=== PATIENT | female | born 1960 | race Caucasian/White ===

== ENCOUNTER 2018-09-09 23:50 | Emergency (ER) | payer BC, MEDICARE ==
[~2018-09-09] VITALS: Ht 160 cm; Wt 81.6 kg
--- OUTSIDE RECORDS SUMMARY | 2018-09-09 23:53 | XMS REPORT | Summary of Care ---
Author Organization Unknown Address Unknown Phone Unavailable Encounter HQ Leilar_aung(DEEJAY) [id number] Date(s): 10/17/13 - 10/17/13 [facility] Outpatient Imaging [place] [address] [place], [place] [id number] [place] [address] Discharge Disposition: Home Physician Attending: Talia Casper DC Reason for Visit 723.2 - CERVICOCRANIAL Problem List No data available for this section Allergies, Adverse Reactions, Alerts Substance Reaction Severity Status codeine Active Vicodin Active Medications No data available for this section Medications Administered During Your Visit No data available for this section Immunizations No data available for this section
--- OUTSIDE RECORDS SUMMARY | 2018-09-09 23:53 | XMS REPORT | Summary of Care ---
Author Author [facility] Organization [facility] Address Unknown Phone Unavailable Encounter ADELAIDE Dailey(DEEJAY) [id number] Date(s): 12/26/16 - 12/26/16 [facility] [address] [place] [address]- Discharge Disposition: Home or Self Care Attending Physician: Jolie Lewis MD Referring Physician: Jolie Lewis MD Vital Signs No data available for this section Problem List Condition Effective Dates Status Health Status Informant Current every day Active smoker(Confirmed) Depression(Confirmed Resolved ) Fracture(Confirmed)1 Resolved Heartburn(Confirmed) Resolved Hypertension(Confirm Active ed) Knee Active pain(Confirmed)2 Polyp of colon3 09/07/10 Active Shoulder Active pain(Confirmed)4 UI - Urinary Active incontinence(Confirm ed) 1left humerus 2left knee 3Data migrated from [employer] on 08/23/14. 4Right shoulder Allergies, Adverse Reactions, Alerts Substance Reaction Severity Status acetaminophen-HYDROcodone Active 1 codeine2 Active Vicodin throat swelling Severe Active 1Data migrated from [employer] on 07/22/14. Originally documented as VICODIN. Respiratory problems, e.g., wheezing 2Data migrated from [employer] on 05/27/15. Originally documented as CODEINE. Respiratory problems, e.g., wheezing Medications No data available for this section Results No data available for this section Immunizations No data available for this section Procedures Procedure Date Related Diagnosis Body Site Repair of meniscus2012 Operation on colon2 2009 Hysterectomy 2002 section 1992 Tonsillectomy 1976 Fallopian tube operation 1Right knee 2Colon tumor removed Social History Social History Type Response Alcohol Never Smoking Status Current every day smoker; Type: Cigarettes; Ready to change: No; Lives with someone who smokes; Cigarette Smoking Last 365 Days Yes; Reg Smoking Cessation Counseling Yes Assessment and Plan No data available for this section
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
--- OUTSIDE RECORDS SUMMARY | 2018-09-09 23:53 | XMS REPORT ---
Author Author Jey Weaver Organization [employer] Address Unknown Phone Unavailable Care Team Providers Care Stacking Machine Operator Name Role Phone Jey Weaver Unavailable Encounters Encounter Location Date MRI [facility] May 21, 2014 Problems Problem Type Condition ICD-9 Code Onset Dates Condition Status Problem Pain in soft tissues of limb 729.5 Active Problem Dislocation of midtarsal(joint)/Closed 838.02 Active Problem Capsulitis 726.90 Active Social History Social History Element Qualifiers Date Reported Do you smoke? . Answer: Yes, Are you a current smoker, How much do you smoke? 1 pk a day May 16, 2014 Marital Status: . May 16, 2014 Do you exercise? . Answer: No May 16, 2014 Do you drink alcohol? . Status: Yes May 16, 2014 Occupation: . Retired May 16, 2014 Summary Purpose [employer] Submission
--- OUTSIDE RECORDS SUMMARY | 2018-09-09 23:53 | XMS REPORT | Summary of Care ---
Author Author [facility] Address Unknown Phone Unavailable Encounter HQ Encntr_aung(FIN) [id number] Date(s): 04/28/15 - 05/27/15 [facility] Discharge Disposition: Home Attending Physician: Raul Goodman MD Vital Signs No data available for this section Problem List Condition Effective Dates Status Health Status Informant Polyp of colon1 09/07/10 Active 1Data migrated from [employer] on 08/23/14. Allergies, Adverse Reactions, Alerts Substance Reaction Severity Status acetaminophen-HYDROcodone Active 1 codeine2 Active Vicodin Active 1Data migrated from [employer] on 07/22/14. Originally documented as VICODIN. Respiratory problems, e.g., wheezing 2Data migrated from [employer] on 05/27/15. Originally documented as CODEINE. Respiratory problems, e.g., wheezing Medications No data available for this section Results No data available for this section Immunizations No data available for this section Procedures No data available for this section Social History No data available for this section Assessment and Plan No data available for this section
--- OUTSIDE RECORDS SUMMARY | 2018-09-09 23:53 | XMS REPORT | Summary of Care ---
Author Author [facility] Organization [facility] Address Unknown Phone Unavailable Encounter ADELAIDE Dailey(DEEJAY) [id number] Date(s): 12/14/16 - 12/14/16 [facility] [address] [place] [address]- Discharge Disposition: Home or Self Care Attending [...]
--- OUTSIDE RECORDS SUMMARY | 2018-09-09 23:53 | XMS REPORT | Summary of Care ---
Author Author [facility] Organization [facility] Address Unknown Phone Unavailable Encounter HQ Ashlie(DEEJAY) [id number] Date(s): 02/27/15 - 02/27/15 [facility] [address] [place] [address]- Discharge Disposition: Home Attending Physician: Jolie Lewis MD Referring Physician: Tracey Ramirez DO Vital Signs No data available for this section Problem List Condition Effective Dates Status Health Status Informant Polyp of colon1 09/07/10 Active 1Data migrated from [employer] on 08/23/14. Allergies, Adverse Reactions, Alerts Substance Reaction Severity Status acetaminophen-HYDROcodone Active 1 codeine Active Vicodin Active 1Data migrated from [employer] on 07/22/14. Originally documented as VICODIN. Respiratory problems, e.g., wheezing Medications No data available for this section Results No data available for this section Immunizations No data available for this section Procedures No data available for this section Social History No data available for this section Assessment and Plan No data available for this section
--- OUTSIDE RECORDS SUMMARY | 2018-09-09 23:53 | XMS REPORT | Summary of Care ---
Author Author [facility] Organization [facility] Address Unknown Phone Unavailable Encounter ADELAIDE Dailey(DEEJAY) [id number] Date(s): 01/03/17 - 01/03/17 [facility] [address] [place] [address]- [phone] Discharge Disposition: Home or Self Care Attending [...]
--- OUTSIDE RECORDS SUMMARY | 2018-09-09 23:53 | XMS REPORT | Continuity of Care Document ---
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 Active 03/16/2017 [facility] CYST RIGHT BREAST ONLY 1 AREA Active 12/26/2016 [facility] MASS Active 12/21/2016 [facility] DX: ROUTINE SCREENING/Z13.820=ENCOUNTER Active 10/06/2016 [facility] Discharge Diagnosis: Cervicalgia 03/04/2016 03/07/2016 [facility] Discharge Diagnosis: Pain in lower back 03/04/2016 03/07/2016 [facility] FALL Active 03/04/2016 [facility] UNK Active 10/08/2015 [facility] S09.90XA Active 02/24/2015 [facility] 354.1 - MEDIAN NERVE LE Active 09/30/2014 [facility] [place] RT HAND DX:GANGLION CYST RT HAND/ULNER N Active 09/23/2014 [facility] 726.90 ADHESION OF TENDON Active 06/03/2014 [facility] Polyp of colon<sup>1</sup> Active 09/07/2010 Problem 05/30/2015 Data migrated from [employer] on 08/23/14. [facility] Polyp of colon<sup>3</sup> Active 09/07/2010 Problem 01/06/2017 Data migrated from [employer] on 08/23/14. [facility] Polyp of colon<sup>3</sup> Active 09/07/2010 Problem 06/28/2016 Data migrated from [employer] on 08/23/14. [facility] [address] [place], [place] [facility] Pain in soft tissues of limb Active Problem 05/22/2014 [facility] Dislocation of midtarsal/Closed Active Problem 05/22/2014 [facility] Capsulitis Active Problem 05/22/2014 [facility] Current every day smoker Active Problem 01/06/2017 [facility] Depression Resolved Problem 01/06/2017 [facility] [place] Fracture<sup>1</sup> Resolved Problem 01/06/2017 left humerus [facility] [place] Heartburn Resolved Problem 01/06/2017 [facility] [place] Hypertension Active Problem 01/06/2017 [facility] [place] [place] Knee pain<sup>2</sup> Active Problem 01/06/2017 left knee [facility] [place] Shoulder pain<sup>4</sup> Active Problem 01/06/2017 Right shoulder [facility] [place] UI - Urinary incontinence Active Problem 01/06/2017 [facility] [place] Current every day smoker Active Problem 06/28/2016 [facility] [place] [place] Depression Resolved Problem 06/28/2016 [facility] [place] [place] Fracture<sup>1</sup> Resolved Problem 06/28/2016 left humerus [facility] [place] [place] Heartburn Resolved Problem 06/28/2016 [facility] [place] [place] Hypertension Active Problem 06/28/2016 [facility] [place] [place] Knee pain<sup>2</sup> Active Problem 06/28/2016 left knee [facility] [place] [place] Shoulder pain<sup>4</sup> Active Problem 06/28/2016 Right shoulder [facility] [place] [place] UI - Urinary incontinence Active Problem 06/28/2016 [facility] [place] [place] HAND Active [facility] RT HAND PAIN Active [facility] RIGHT RTC Active [facility] POST RTC SX:10/29/2015 Active [facility] [place] RT SHOULDER STIFFNESS Active [facility] STIFFNESS OF RT SHOULDER Active [facility] Medications Medication Details Route Status Patient Instructions Ordering Provider Order Date Source Cyclobenzaprine hydrochloride 10 MG Oral Tablet [Flexeril] 10 mg, PO, TID, PRN Muscle Spasm, X 5 day, # 20 tab, 0 Refill(s) Active 03/05/2016 [facility] tramadol hydrochloride 50 MG Oral Tablet [Ultram] 100 mg=2 tab, PO, Q6H, PRN pain, X 3 day, # 24 tab, 0 Refill(s) Active 03/05/2016 [facility] Oxycodone Hydrochloride 1 MG/ML Oral Solution 5 mg, 5 mL, Route: PO, Drug form: SOLN, ONCE, Dosing Weight 86.364, kg, Start date: 03/04/16 17:39:00 [employer], Stop date: 03/04/16 17:39:00 CSTNotes: (Same as:'Roxicodone) To be drawn up in 3 mL syr Inactive 03/04/2016 [facility] Dexamethasone 10 mg, Route: IM, ONCE, Dosing Weight 86.364, kg, Priority: STAT, Start date: 03/04/16 17:39:00 [employer], Stop date: 03/04/16 17:39:00 [employer] Inactive 03/04/2016 [facility] Flexeril 10 mg, Route: PO, ONCE, Dosing Weight 86.364, kg, Priority: STAT, Start date: 03/04/16 17:38:00 STR[employer]CH[employer], Stop date: 03/04/16 17:38:00 [employer] Inactive 03/04/2016 [facility] Ketorolac 60 mg, Route: IM, Drug form: INJ, ONCE, Dosing Weight 86.364, kg, Priority: STAT, Start date: 03/04/16 17:38:00 [employer], Stop date: 03/04/16 17:38:00 [employer] Inactive 03/04/2016 [facility] ropivacaine (ANES) Route: NERVE BLOCK, Drug Form: INJ, ONCE, Stop date: 10/29/15 20:07:00 CDT Inactive 10/30/2015 [facility] neostigmine (ANES) Route: IV, Drug form: INJ, ONCE, Stop date: 10/29/15 14:27:00 CDT Inactive 10/29/2015 [facility] glycopyrrolate (ANES) Route: IV, Drug form: INJ, ONCE, Stop date: 10/29/15 14:27:00 CDT Inactive 10/29/2015 [facility] ePHEDrine (ANES) Route: IV, Drug form: INJ, ONCE, Stop date: 10/29/15 14:27:00 CDT Inactive 10/29/2015 [facility] ropivacaine Dosing: Per Nerve Block Dosing Order, Route: NERVE BLOCK, Start date: 10/29/15 14:21:00 CDT 400 mL, Dosing Weight 85.46, kg, Duration: 30 day, Stop date: 11/28/15 14:20:00 CDT Inactive 10/29/2015 [facility] Ondansetron 4 mg, Route: IVP, ONCE, Dosing Weight 85.46, kg, PRN Nausea & Vomiting, Start date: 10/29/15 14:15:00 CDT Inactive 10/29/2015 [facility] Fentanyl 50 microgram, Route: IVP, Q5Min, Dosing Weight 85.46, kg, PRN Pain Score 7-10, Start date: 10/29/15 14:15:00 CDT, Duration: 2 doses or times, Stop date: Limited # of times Inactive 10/29/2015 [facility] Flumazenil 0.2 mg, Route: IVP, PRN, Dosing Weight 85.46, kg, PRN Benzodiazepine Reversal, Initial dose, Start date: 10/29/15 14:15:00 CDT, Duration: 30 day, Stop date: 11/28/15 14:14:00 CDT Inactive 10/29/2015 [facility] Oxycodone 10 mg, Route: PO, Drug form: TAB, Q4H, Dosing Weight 85.46, kg, PRN Pain Score 7-10, Start date: 10/29/15 14:15:00 CDT, Duration: 30 day, Stop date: 11/28/15 14:14:00 CDT Inactive 10/29/2015 [facility] Meperidine 12.5 mg, Route: IVP, Q30Min, Dosing Weight 85.46, kg, PRN Other -See Comment, For shivering, Start date: 10/29/15 14:15:00 CDT, Duration: 2 doses or times, Stop date: Limited # of times Inactive 10/29/2015 [facility] Naloxone 0.4 mg, Route: IVP, Q2MIN, Dosing Weight 85.46, kg, PRN Narcotic Reversal, Start date: 10/29/15 14:15:00 CDT, Duration: 8 doses or times, Stop date: Limited # of times Inactive 10/29/2015 [facility] Acetaminophen 1,000 mg, Route: IVPB, Drug form: INJ, ONCE, Dosing Weight 85.46, kg, PRN Pain Score 1-3, Start date: 10/29/15 14:15:00 CDT, Duration: 1 doses or times, Stop date: Limited # of times Inactive 10/29/2015 [facility] Hydromorphone 0.5 mg, Route: IVP, Q5Min, Dosing Weight 85.46, kg, PRN Pain Score 7-10, Start date: 10/29/15 14:15:00 CDT, Duration: 4 doses or times, Stop date: Limited # of times Inactive 10/29/2015 [facility] ondansetron (ANES) Route: IV, Drug form: INJ, ONCE, Stop date: 10/29/15 13:55:00 CDT Inactive 10/29/2015 [facility] propofol (ANES) Route: IV, Drug form: INJ, ONCE, Stop date: 10/29/15 13:50:00 CDT Inactive 10/29/2015 [facility] rocuronium (ANES) Route: IV, Drug form: INJ, ONCE, Stop date: 10/29/15 13:50:00 CDT Inactive 10/29/2015 [facility] fentaNYL (ANES) Route: IV, Drug form: INJ, ONCE, Stop date: 10/29/15 13:50:00 CDT Inactive 10/29/2015 [facility] ceFAZolin (ANES) Route: IV, Drug form: INJ, ONCE, Stop date: 10/29/15 13:45:00 CDT Inactive 10/29/2015 [facility] midazolam (ANES) Route: IV, Drug form: SOLN, ONCE, Stop date: 10/29/15 13:45:00 CDT Inactive 10/29/2015 [facility] LR 1000 mL INJ (ANES) Route: IV, Total Volume: 1,000, Start date: 10/29/15 13:06:00 CDT, Stop date: 10/29/15 14:06:00 CDT Inactive 10/29/2015 [facility] Calcium Chloride 0.0014 MEQ/ML / Potassium Chloride 0.004 MEQ/ML / Sodium Chloride 0.103 MEQ/ML / Sodium Lactate 0.028 MEQ/ML Injectable Solution 1,000 mL, Rate: 25 ml/hr, Infuse over: 40 hr, Route: IV, Dosing Weight 85.46 kg, Total Volume: 1,000, Start date: 10/29/15 10:35:00 CDT, Duration: 30 day, Stop date: 11/28/15 10:34:00 CDT Inactive 10/29/2015 [facility] Propranolol 10 mg=1 tab, PO, Daily Active 10/29/2015 [facility] azilsartan medoxomil 40 MG / Chlorthalidone 25 MG Oral Tablet [Edarbyclor 40/25] 1 tab, PO, Daily Active 10/29/2015 [facility] Aspirin 81 mg, PO, Daily, 0 Refill(s) No Longer Active 10/27/2015 [facility] Allergies, Adverse Reactions, Alerts Substance Category Reaction Severity Reaction type Status Date Reported Comments Source acetaminophen-HYDROcodone<sup>1</sup> Assertion Drug allergy Active 09/07/2010 Data migrated from [employer] on 07/22/14. Originally documented as VICODIN. Respiratory problems, e.g., wheezing [facility] codeine<sup>2</sup> Assertion Drug allergy Active 09/07/2010 Data migrated from [employer] on 05/27/15. Originally documented as CODEINE. Respiratory problems, e.g., wheezing [facility] codeine Assertion Drug allergy Active [facility] Vicodin Assertion throat swelling Severe Propensity to adverse reactions to drug Active [facility] Immunizations Immunization Date Given Site Status Last Updated Comments Source Results Order Name Results Value Reference Range Date Interpretation Comments Source Breast Mammo Diag UNI incl CAD MA Breast Mammo Diag UNI incl CAD MA UNILATERAL RIGHT DIGITAL DIAGNOSTIC MAMMOGRAM WITH CAD POST-PROCEDURE IMAGING FOR MARKER PLACEMENT: 01/03/2017 CLINICAL: Post biopsy clip confirmation mammogram after ultrasound biopsy. Current study was evaluated with a Computer Aided Detection (CAD) system. COMPARISON:Comparison is made to exams dated: 12/26/2016 mammogram, 12/14/2016 mammogram, 01/03/2017 ultrasound biopsy - [facility], 08/30/2011 mammogram - [facility], and 08/25/2010 ultrasound - [facility]. TECHNIQUE: Mammographic views were obtained using digital acquisition. [employer] Version 1.3 was utilized for computer aided detection. The tissue of right breast is heterogeneously dense, which could obscure detection of small masses. FINDINGS: Post procedure digital mammogram demonstrates the biopsy clip in appropriate position. No other significant interval change. There are benign densities in the right breast. IMPRESSION: POST PROCEDURE MAMMOGRAM FOR MARKER PLACEMENT RECOMMENDATION:Biopsy clip is in appropriate position. Please see biopsy report for further details. Follow up with ACR/SBI guidelines. This exam was interpreted at [id number] for [facility]. José Miguel kwokt/penrad:01/03/2017 10:59:29 Telephone Order Dispatcher(s): Maddie Varner, RT(R)(M), [facility] Mammogram BI-RADS: Post-procedure mammogram for marker placement 01/03/2017 - - Read by: José Miguel Stevenson MD Dictated Date/time: 01/03/17 10:59 Electronically Signed by: José Miguel Stevenson MD 01/03/17 10:59 FINAL REPORT [facility] Breast BX Uni w Clip Primary Side US Breast BX Uni w Clip Primary Side US ULTRASOUND GUIDED BIOPSY RIGHT BREAST WITH MARKING DEVICE INSERTED AND POST DIGITAL MAMMOGRAPHIC AND ULTRASOUND IMAGIN01/03/2017 CLINICAL: Right breast 2 o'clock Cystic Mass. PATIENT CONSENT: Oral and written informed consent was obtained. Risks, benefits, and alternatives were discussed with the patient. Risks include but are not limited to pain, infection, bleeding, incomplete procedure, repeat procedure, pneumothorax, damage to surrounding tissues, and allergic reaction. The patient understands the plan and wishes to proceed. A time out was performed immediately prior to the procedure to confirm the patient's identity (name/date of ) and correct procedure site. Correlation is made to exams dated: 12/26/2016 ultrasound, 12/26/2016 mammogram, 12/14/2016 mammogram - [facility], 08/30/2011 mammogram - [facility], 08/25/2010 ultrasound, and 08/25/2010 mammogram - [facility]. An ultrasound guided biopsy using real-time ultrasound was performed for the concerning 1.7 cm circumscribed oval cystic mass located in the right breast at 2 o'clock middle depth 2 cm from the nipple. This was described on the previous mammography and ultrasound reports. The skin was prepped in the usual manner. 5 ccs of 1% lidocaine was administered during the procedure. After the local a nesthetic was administered, about 2 ccs of cloudy fluid was aspirated and sent for cytological analysis. Then, biopsy of the persistent cystic mass was performed. A skin amanda was made in the breast. The abnormality was approached from the medial aspect. A 14 gauge biopsy needle was placed adjacent to the abnormality through an introducer device under ultrasound guidance. Once the needle was documented to be in the correct location, multiple cores were obtained using an Achieve automated firing device. A Gel Alejandro UltraCor braided R/omega shaped clip was inserted into the biopsy cavity. A skin adhesive and a skin closure strip were applied to the access site. Post procedure digital mammographic and ultrasound imaging interpreted on a dedicated mammography workstation demonstrates the clip at the targeted area and partial removal of the abnormality. The specimens were sent to the laboratory for pathological analysis. IMPRESSION: ULTRASOUND GUIDED BIOPSY BENIGN Ultrasound guided biopsy of the 1.7 cm cystic mass in the right breast at 2 o'clock middle depth 2 cm from the nipple was successful with no apparent post procedure complications. Pathology indicates benign results - "Fibrocystic changes consistent with cyst formation, nodular fibrosis, florid duct epithelial hyperplasia, apocrine metaplasia, adenosis". Negative cytology - "Negative, no malignant cells identified. Mostly proteinaceous debris consistent with cyst contents." Pathology results are concordant with imaging findings. Return to annual mammogram screening schedule is recommended.(12/14/2017) This exam was interpreted at [id number] for [facility]. José Miguel Stevenson M.D. jt/:01/05/2017 10:04:57 Telephone Order Dispatcher(s): Alek Horan [facility] letter sent: Post Bx Results 01/03/2017 - - Read by: José Miguel Stevenson MD Dictated Date/time: 01/05/17 10:04 Electronically Signed by: José Miguel Stevenson MD 01/05/17 10:04 FINAL REPORT [facility] Breast Limited Uni US Breast Limited Uni US - BREAST LIMITED UNI US/R ULTRASOUND OF RIGHT BREAST: 12/26/2016 CLINICAL: Abnormal mammogram, mammographic nodule/density. Comparison is made to exams dated: 12/26/2016 mammogram, 12/14/2016 mammogram - [facility], 08/30/2011 mammogram - [facility], 08/25/2010 ultrasound, 08/25/2010 mammogram - [facility] and 07/07/2009 mammogram - [facility]. Color flow and real-time ultrasound of the right breast were performed. Good scale images of the real-time examination were reviewed. There is a 1.7 cm cluster of oval masses with a circumscribed margin in the right breast at 2 o'clock middle depth 2 cm from the nipple. This cluster of oval masses is hypoechoic with internal echoes and posterior acoustic enhancement. This correlates with mammography findings. There are calcifications within the mass. IMPRESSION: SUSPICIOUS OF MALIGNANCY - FOLLOW-UP RECOMMENDED The 1.7 cm cluster of oval masses in the right breast resembles complex cysts, an intracystic lesion, a papillary lesion or complicated cysts and is at an intermediate suspicion for malignancy. A diagnostic aspiration with ultrasound guided biopsy are recommended. A phone call was made to the physician's office and the results were reviewed with the patient. SUMMARY: The patient scheduled her procedure prior to leaving the [facility]. The physician's office was notified at 1350 hours on the day of the exam of the above findings and recommendations. An order for this procedure will need to be provided by the referring physician. As the patient is on anti-coagulation medication (aspirin), this should be discontinued prior to the biopsy with the referring physician's approval. José Miguel kwokt/:12/26/2016 13:55:27 Telephone Order Dispatcher: Shiloh He, [facility] This exam was dictated and interpreted by [id number] for [facility]. letter sent: Biopsy Ultrasound BI-RADS: 4b Suspicious abnormality - intermediate suspicion of malignancy 12/26/2016 - - Read by: José Miguel Stevenson MD Dictated Date/time: 12/26/16 13:55 Electronically Signed by: José Miguel Stevenson MD 12/26/16 13:55 FINAL REPORT [facility] Breast Mammo Diag UNI incl CAD MA Breast Mammo Diag UNI incl CAD MA - BREAST MAMMO DIAG UNI INCL CAD MA/R UNILATERAL RIGHT DIGITAL DIAGNOSTIC MAMMOGRAM WITH CAD: 12/26/2016 CLINICAL: /Callback abnormal mammogram, mammographic nodule/density. Current study was evaluated with a Computer Aided Detection (CAD) system. Comparison is made to exams dated: 12/14/2016 mammogram - [facility], 08/30/2011 mammogram - [facility], 08/25/2010 mammogram - [facility], 07/07/2009 mammogram - [facility], 03/18/2008 mammogram - [facility] and 04/03/2006 mammogram - [facility]. The tissue of the right breast is heterogeneously dense, which could obscure detection of small masses. There are benign densities in the right breast. There is a mass in the right breast at 2 o'clock middle depth. This correlates with the prior exam. No other significant masses or calcifications are seen in the breast. IMPRESSION: INCOMPLETE: NEEDS ADDITIONAL IMAGING EVALUATION The mass in the right breast is indeterminate. An ultrasound is recommended. The results were reviewed with the patient. SUMMARY: Ultrasound will be performed at this time; please see dedicated separate report. José Miguel philip/lucinda:12/26/2016 13:41:29 Telephone Order Dispatcher: Kati Gunter, [facility] This exam was dictated and interpreted by [id number] for [facility]. Mammogram BI-RADS: 0 Indeterminate 12/26/2016 - - Read by: José Miguel Stevenson MD Dictated Date/time: 12/26/16 13:41 Electronically Signed by: José Miguel Stevenson MD 12/26/16 13:41 FINAL REPORT [facility] Bone Density Scan Bone Density Scan BONE DENSITY: HISTORY: Osteoporosis screening. TECHNIQUE: Dual energy x-ray absorptiometry (DEXA) was done over the lumbar spine and left hip on a [employer] Discovery SL scanner. FINDINGS: The total T-score over the lumbar spine is 0.0, consistent with normal bone density. The global T-score over the left hip is -0.1, consistent with normal bone density. The focal T-score over the left femoral neck is -0.8, consistent with normal bone density. The BMD is 0.785 g/sq cm. IMPRESSION: 1. Normal bone density of the lumbar spine. 2. Normal global bone density of the left hip. 3. Normal bone density of the left femoral neck. FOR YOUR INFORMATION: The World Health Organization has established that OSTEOPOROSIS occurs at -2.5 or more standard deviations below peak bone mass (T-score). OSTEOPENIA occurs at -1.0 to -2.5 standard deviations (T-score) below peak bone mass. [id number] 12/14/2016 - - Read by: Frankie Ortiz MD Dictated Date/time: 12/14/16 14:20 Electronically Signed by: Frankie Ortiz MD 12/14/16 14:21 FINAL REPORT [facility] Breast Mammo Scrn AMANDA incl CAD MA Breast Mammo Scrn AMANDA incl CAD MA - BREAST MAMMO SCRN AMANDA INCL CAD MA BILATERAL DIGITAL SCREENING MAMMOGRAM WITH CAD: 12/14/2016 CLINICAL: /Screen. Current study was evaluated with a Computer Aided Detection (CAD) system. Comparison is made to exams dated: 08/30/2011 mammogram - [facility], 08/25/2010 mammogram - [facility], 07/07/2009 mammogram - [facility], 03/18/2008 mammogram - [facility], 04/03/2006 mammogram - [facility] and 04/03/2006. The tissue of both breasts is heterogeneously dense, which could obscure detection of small masses. There are benign densities in both breasts. There is a mass in the right breast at 2 o'clock middle depth. No other significant masses, calcifications, or other findings are seen in either breast. IMPRESSION: INCOMPLETE: NEEDS ADDITIONAL IMAGING EVALUATION The mass in the right breast is indeterminate. Right diagnostic mammogram with possible ultrasound is recommended (spot compression and lateral views). José Miguel philip/penrad:12/14/2016 14:48:12 Telephone Order Dispatcher: Kati Gunter, [facility] This exam was dictated and interpreted by [id number] for [facility] Breast Deep Gap. letter sent: Additional Imaging Mammogram BI-RADS: 0 Indeterminate 12/14/2016 - - Read by: José Miguel Stevenson MD Dictated Date/time: 12/14/16 14:48 Electronically Signed by: José Miguel Stevenson MD 12/14/16 14:48 FINAL REPORT [facility] Knee wo contrast MRI Knee wo contrast MRI EXAM: MRI of the left knee without contrast INDICATION: M17.12 Unilateral primary osteoarthritis, left knee COMPARISON: None. TECHNIQUE: Multiplanar, multisequence magnetic resonance imaging of the left knee was performed without the administration of intravenous gadolinium contrast. FINDINGS: Intercondylar notch: Intracruciate ganglion cyst formation throughout the anterior cruciate ligament is seen. Posterior cruciate ligament is intact. Medial compartment: Severe joint space narrowing and prominent marginal osseous spurring is seen. Large areas of diffuse full-thickness cartilage loss with subtle underlying cystic change are noted throughout the central to posterior weightbearing portions of the medial femoral condyle and medial tibial plateau. Diminution and heterogeneity throughout the medial meniscus posterior horn is seen, compatible with complex degenerative tear. Mild intrasubstance degeneration throughout the medial meniscus body is seen. Medial collateral ligament is intact. Lateral compartment: Severe joint space narrowing and prominent marginal osseous spurring is seen. Large areas of diffuse full-thickness cartilage loss with extensive underlying subchondral cystic change throughout the lateral femoral condyle as well as posterior lateral tibial plateau are seen. There is diminution and maceration of the lateral meniscus at the body-posterior horn junction, compatible with complex degenerative tear. Intrasubstance degeneration of the remaining lateral meniscus is seen. Lateral collateral ligament complex is intact. Posterolateral corner structures are intact. Patellofemoral compartment: Diffuse high-grade partial to full-thickness cartilage fissuring with underlying cystic change throughout the inferior lateral patellar facet is seen. There is a low-grade chondromalacia along the apex of the trochlea. Extensor mechanism: Quadriceps and patellar tendons are intact. Other findings: Moderate to large joint effusion is seen. IMPRESSION: 1. Severe osteoarthrosis with high-grade chondromalacia of the medial and lateral femorotibial compartments. 2. High-grade chondromalacia of the patellofemoral compartment. 3. Complex degenerative tears of the medial and lateral menisci. 4. Moderate to large joint effusion. SL: [id number] 06/25/2016 - - Read by: Saman Moura MD Dictated Date/time: 06/27/16 10:40 Electronically Signed by: Saman Moura MD 06/27/16 10:46 FINAL REPORT [facility] Spine thoracic 3 views DX Spine thoracic 3 views DX THORACIC SPINE -- 3 VIEWS Clinical Indication: Pain Post Trauma; Comparison: None FINDINGS: The 3 views of the thoracic spine show a very mild dextroscoliosis of the upper thoracic spine. There are no fractures or subluxations. The anterior paraspinal soft tissues are unremarkable. The disc spaces are unremarkable. The visualized posterior elements are unremarkable. The costovertebral junctions are unremarkable. IMPRESSION: Mild upper thoracic dextroscoliosis. Otherwise negative thoracic spine series. : SSMILEY-PC 03/04/2016 - - Read by: Steven Kwan MD Dictated Date/time: 03/04/16 18:20 Electronically Signed by: Steven Kwan MD 03/04/16 18:23 FINAL REPORT [facility] lumbar 2 or 3 views DX Spine lumbar 2 or 3 views DX Lumbar spine 3 views: There is normal alignment without fracture or dislocation. There is marked narrowing of the L4-L5 disc space with endplate sclerosis and a vacuum phenomenon. The findings are unchanged compared to previous lumbar spine radiographs on 10/17/2013. The other disc spaces and SI joints are within normal limits. There are no significant soft tissue abnormalities. IMPRESSION: Degenerative disc disease at L4-L5 without other acute radiographic abnormalities in the lumbar spine. [id number] 03/04/2016 - - Read by: Frankie Ortiz MD Dictated Date/time: 03/04/16 17:13 Electronically Signed by: Frankie Ortiz MD 03/04/16 17:14 FINAL REPORT [facility] cervical 2 or 3 view DX Spine cervical 2 or 3 view DX Cervical spine 3 views: There is no fracture or dislocation. There is narrowing of the C5-C6 and C6-C7 disc spaces with mild anterior and dorsal spondylosis. The other disc spaces are normal in width. The prevertebral soft tissues are within normal limits. IMPRESSION: No acute radiographic abnormality in the cervical spine. [id number] 03/04/2016 - - Read by: Frankie Ortiz MD Dictated Date/time: 03/04/16 17:11 Electronically Signed by: Frankie Ortiz MD 03/04/16 17:12 FINAL REPORT [facility] Brain wo contrast CT Brain wo contrast CT CLINICAL HISTORY: Headache and dizziness post head trauma. Brain CT without contrast. COMPARISON: No previous. 1 cm low-density lesion right zayas radiata. No associated hemorrhage or mass effect. 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 No acute intracranial lesion or hemorrhage, infarct, mass or pathologic extra- axial fluid otherwise. Ventricular system otherwise normal. No skull fracture. Visualized paranasal sinuses are clear. IMPRESSION: No specific acute finding. :14 02/27/2015 - - Read by: Renny Dobbs MD Dictated Date/time: 12/04/15 11:45 Electronically Signed by: Renny Dobbs MD 02/27/15 11:48 FINAL REPORT [facility] Vital Signs Vital Sign Value Date Comments Source Systolic (mm Hg) 136 03/05/2016 [facility] Diastolic (mm Hg) 89 03/05/2016 [facility] Temperature Oral (F) 98.2 F 03/05/2016 [facility] Respitory Rate 18 03/05/2016 [facility] Heart Rate 68 03/05/2016 [facility] Weight 86.364 03/04/2016 [facility] BMI Calculated 32.68 03/04/2016 [facility] Height 162.56 cm 03/04/2016 [facility] Temperature Oral (F) 98.2 F 03/04/2016 [facility] Respitory Rate 18 03/04/2016 [facility] Heart Rate 68 03/04/2016 [facility] Systolic (mm Hg) 137 03/04/2016 [facility] Diastolic (mm Hg) 73 03/04/2016 [facility] Systolic (mm Hg) 134 10/29/2015 [facility] Diastolic (mm Hg) 91 10/29/2015 [facility] Respitory Rate 16 10/29/2015 [facility] Systolic (mm Hg) 124 10/29/2015 [facility] Diastolic (mm Hg) 97 10/29/2015 [facility] Respitory Rate 17 10/29/2015 [facility] Respitory Rate 16 10/29/2015 [facility] Systolic (mm Hg) 115 10/29/2015 [facility] Diastolic (mm Hg) 77 10/29/2015 [facility] Temperature Oral (F) 98.3 F 10/27/2015 [facility] Heart Rate 74 10/27/2015 [facility] BMI Calculated 33.37 10/27/2015 [facility] Weight 85.46 10/27/2015 [facility] Height 160.02 cm 10/27/2015 [facility] Encounters Location Location Details Encounter Type Encounter Number Reason For Visit Attending Provider ADM Date DC Date Status Source [facility] Outpatient Imaging [facility] Diag Services [id number] Talia Casper 10/17/2013 10/18/2013 [facility] MRI [id number] 05/21/2014 05/21/2014 [facility] Outpatient [id number] Tracey Ramirez 02/27/2015 02/28/[address] [facility] OP Therapy Patients [id number] Raul Gambino Jr 04/28/2015 05/28/2015 [facility] OBS Day Surgery [id number] Bhavya Salgado[place] 10/29/2015 10/29/2015 [facility] OP Therapy Patients [id number] Bhavya Salgado[place] 11/02/2015 12/02/2015 [facility] OP Therapy Patients [id number] Bhavya Salgado[place] 12/02/2015 01/01/2016 [facility] OP Therapy Patients [id number] Bhavya Salgado[place] 01/05/2016 02/04/2016 [facility] OP Therapy Patients [id number] Bhavya Salgado[place] 02/08/2016 03/09/2016 [facility] Emergency [id number] Nadim Samaritan 03/04/2016 03/05/[address] [facility] OP Therapy Patients [id number] Bhavya Salgado[place] 03/09/2016 04/08/2016 [facility] Outpatient Imaging [facility] Diag Services [id number] Bhavya Salgado[place] 06/25/2016 06/26/2016 [facility] Outpatient [id number] Amir Ghebranious 12/14/2016 12/15/2016 [facility] Outpatient [id number] Amir Ghebranious 12/26/2016 12/27/2016 [facility] Outpatient [id number] Amir Ghebranious 01/03/2017 01/04/2017 [facility] Outpatient [id number] APRIL JENNIFER 04/09/2018 [facility] Procedures Procedure Code Date Perfomer Comments Source Repair of meniscus<sup>1</sup> [id number] 03/27/2012 Right knee [facility] Repair of meniscus<sup>1</sup> [id number] 03/27/2012 Right knee [facility] Repair of meniscus<sup>1</sup> [id number] 03/27/2012 Right knee [facility] Repair of meniscus<sup>1</sup> [id number] 03/27/2012 Right knee [facility] Operation on colon<sup>2</sup> [id number] 03/27/2009 Colon tumor removed [facility] Operation on colon<sup>2</sup> [id number] 03/27/2009 Colon tumor removed [facility] Operation on colon<sup>2</sup> [id number] 03/27/2009 Colon tumor removed [facility] Operation on colon<sup>2</sup> [id number] 03/27/2009 Colon tumor removed [facility] Hysterectomy [id number] 03/27/2002 [facility] [place] Hysterectomy [id number] 03/27/2002 [facility] Hysterectomy [id number] 03/27/2002 [facility] Hysterectomy [id number] 03/27/2002 [facility] section [id number] 03/27/1991 [facility] section [id number] 03/27/1991 [facility] section [id number] 03/27/1991 [facility] section [id number] 03/27/1991 [facility] Tonsillectomy [id number] 03/27/1975 [facility] Tonsillectomy [id number] 03/27/1975 [facility] Tonsillectomy 973793265 03/27/1975 [facility] Tonsillectomy [id number] 03/27/1975 [facility] Fallopian tube operation [id number] [facility] Fallopian tube operation [id number] [facility] Fallopian tube operation 105810326 [facility] Fallopian tube operation [id number] [facility]
--- OUTSIDE RECORDS SUMMARY | 2018-09-09 23:54 | XMS REPORT | Summary of Care ---
Author Author [facility] Unknown Phone Unavailable Encounter ADELAIDE Dailey(FIN) [id number] Date(s): 01/05/16 - 02/03/16 [facility] Discharge Disposition: Home or Self Care Attending Physician: Bhavya Villar MD Vital Signs No data available for [...] of meniscus2012 Operation on colon2 2009 Hysterectomy 2003 section 1992 Tonsillectomy 1976 Fallopian tube operation [...]
--- OUTSIDE RECORDS SUMMARY | 2018-09-09 23:54 | XMS REPORT | Summary of Care ---
Author Author [facility] Unknown Phone Unavailable Encounter [facility] Ash[facility](FIN) [id number] Date(s): 03/09/16 - 04/07/16 [facility] Discharge Disposition: Home or Self Care Attending [...]
--- OUTSIDE RECORDS SUMMARY | 2018-09-09 23:54 | XMS REPORT | Summary of Care ---
Author Author [facility] Unknown Phone Unavailable Encounter ADELAIDE Dailey(FIN) [id number] Date(s): 12/02/15 - 12/31/15 [facility] Discharge Disposition: Home or Self [...]
--- OUTSIDE RECORDS SUMMARY | 2018-09-09 23:54 | XMS REPORT | Summary of Care ---
Author Author [facility] Unknown Phone Unavailable Encounter HQ Ashlie(FIN) [id number] Date(s): 02/08/16 - 03/08/16 [facility] Discharge Disposition: Home or Self Care [...] Date Related Diagnosis Body Site Repair of meniscus1 2012 Operation on colon2 2009 Hysterectomy 2003 section 1992 Tonsillectomy 1975 Fallopian tube operation 1Right knee 2Colon tumor removed Social History Social History Type Response Alcohol Never Smoking Status Current every day smoker; Type: Cigarettes; Ready to change: No; Lives with someone who smokes; Cigarette Smoking Last 365 Days Yes; Reg Smoking Cessation Counseling Yes Assessment and Plan No data available for this section
--- OUTSIDE RECORDS SUMMARY | 2018-09-09 23:54 | XMS REPORT | Summary of Care ---
Author Author [facility] Organization [facility] Address Unknown Phone Unavailable Encounter [facility] Ashlie(FIN) [id number] Date(s): 10/29/15 - 10/29/15 [facility] [address] [place] [address]- [phone] Discharge Disposition: Home or Self Care Attending Physician: Bhavya Villar MD Referring Physician: Bhavya Villar MD Vital Signs 1 2 3 Most recent to oldest [Reference Range]: 160.02 cm (10/27/15 9:49 AM) Height 98.3 DegF (10/27/15 10:15 AM) Temperature Oral [96.4-99.1 DegF] 134/91 mmHg (10/29/15 4:15 PM) 124/97 mmHg (10/29/15 2:48 PM) 115/77 mmHg (10/29/15 2:46 PM) Blood Pressure [90-140/60-90 mmHg] 16 BRMIN (10/29/15 4:15 PM) 17 BRMIN (10/29/15 2:48 PM) 16 BRMIN (10/29/15 2:46 PM) Respiratory Rate [14-20 BRMIN] 74 bpm (10/27/15 10:15 AM) Peripheral Pulse Rate [60-100 bpm] 85.46 kg (10/27/15 9:49 AM) Weight 33.37 m2 (10/27/15 9:49 AM) Body Mass Index Problem List Condition Effective Dates Status Health Status Informant Current every day Active smoker(Confirmed) Depression(Confirmed Resolved ) Fracture(Confirmed)1 Resolved Heartburn(Confirmed) Resolved Hypertension(Confirm Active ed) Knee Active pain(Confirmed)2 Polyp of colon3 09/07/10 Active Shoulder Active pain(Confirmed)4 UI - Urinary Active incontinence(Confirm ed) 1left humerus 2left knee 3Data migrated from [employer] on 08/23/14. 4Right shoulder Allergies, Adverse Reactions, Alerts Substance Reaction Severity Status acetaminophen-HYDROcodone Active 1 codeine2 Active Vicodin throat swelling Severe Active 1Data migrated from [employer] on 07/22/14. Originally documented as VICODIN. Respiratory problems, e.g., wheezing 2Data migrated from [employer] on 05/27/15. Originally documented as CODEINE. Respiratory problems, e.g., wheezing Medications ANES acetaminophen 1,000 mg, Route: IVPB, Drug form: INJ, ONCE, Dosing Weight 85.46, kg, PRN Pain S core 1-3, Start date: 10/29/15 14:15:00 CDT, Duration: 1 doses or times, Stop da te: Limited # of times Start Date: 10/29/15 Stop Date: 10/29/15 Status: Discontinued ANES fentaNYL 50 microgram, Route: IVP, Q5Min, Dosing Weight 85.46, kg, PRN Pain Score 7-10, S tart date: 10/29/15 14:15:00 CDT, Duration: 2 doses or times, Stop date: Limited # of times Start Date: 10/29/15 Stop Date: 10/29/15 Status: Discontinued ANES flumazenil 0.2 mg, Route: IVP, PRN, Dosing Weight 85.46, kg, PRN Benzodiazepine Reversal, I nitial dose, Start date: 10/29/15 14:15:00 CDT, Duration: 30 day, Stop date: 06/09 14:14:00 CDT Start Date: 10/29/15 Stop Date: 10/29/15 Status: Discontinued ANES HYDROmorphone 0.5 mg, Route: IVP, Q5Min, Dosing Weight 85.46, kg, PRN Pain Score 7-10, Start d ate: 10/29/15 14:15:00 CDT, Duration: 4 doses or times, Stop date: Limited # of times Start Date: 10/29/15 Stop Date: 10/29/15 Status: Discontinued ANES meperidine 12.5 mg, Route: IVP, Q30Min, Dosing Weight 85.46, kg, PRN Other -See Comment, Fo r shivering, Start date: 10/29/15 14:15:00 CDT, Duration: 2 doses or times, Stop date: Limited # of times Start Date: 10/29/15 Stop Date: 10/29/15 Status: Discontinued ANES naloxone 0.4 mg, Route: IVP, Q2MIN, Dosing Weight 85.46, kg, PRN Narcotic Reversal, Start date: 10/29/15 14:15:00 CDT, Duration: 8 doses or times, Stop date: Limited # of times Start Date: 10/29/15 Stop Date: 10/29/15 Status: Discontinued ANES ondansetron 4 mg, Route: IVP, ONCE, Dosing Weight 85.46, kg, PRN Nausea & Vomiting, Start date: 10/29/15 14:15:00 CDT Start Date: 10/29/15 Stop Date: 10/29/15 Status: Completed ANES oxyCODONE 10 mg, Route: PO, Drug form: TAB, Q4H, Dosing Weight 85.46, kg, PRN Pain Score 7 -10, Start date: 10/29/15 14:15:00 CDT, Duration: 30 day, Stop date: 11/28/15 14 :14:00 CDT Start Date: 10/29/15 Stop Date: 10/29/15 Status: Discontinued aspirin 81 mg, PO, Daily, 0 Refill(s) Start Date: 10/27/15 Stop Date: 10/29/15 Status: Discontinued ceFAZolin (ANES) Route: IV, Drug form: INJ, ONCE, Stop date: 10/29/15 13:45:00 CDT Start Date: 10/29/15 Stop Date: 10/29/15 Status: Completed Edarbyclor 40 mg-25 mg oral tablet 1 tab, PO, Daily Start Date: 10/29/15 Status: Ordered ePHEDrine (ANES) Route: IV, Drug form: INJ, ONCE, Stop date: 10/29/15 14:27:00 CDT Start Date: 10/29/15 Stop Date: 10/29/15 Status: Completed fentaNYL (ANES) Route: IV, Drug form: INJ, ONCE, Stop date: 10/29/15 13:50:00 CDT Start Date: 10/29/15 Stop Date: 10/29/15 Status: Completed glycopyrrolate (ANES) Route: IV, Drug form: INJ, ONCE, Stop date: 10/29/15 14:27:00 CDT Start Date: 10/29/15 Stop Date: 10/29/15 Status: Completed Lactated Ringers Injection IV 1000 mL 1,000 mL, Rate: 25 ml/hr, Infuse over: 40 hr, Route: IV, Dosing Weight 85.46 kg, Total Volume: 1,000, Start date: 10/29/15 10:35:00 CDT, Duration: 30 day, Stop date: 11/28/15 10:34:00 CDT Start Date: 10/29/15 Stop Date: 10/29/15 Status: Discontinued LR 1000 mL INJ (ANES) Route: IV, Total Volume: 1,000, Start date: 10/29/15 13:06:00 CDT, Stop date: 14:06:00 CDT Start Date: 10/29/15 Stop Date: 10/29/15 Status: Completed midazolam (ANES) Route: IV, Drug form: SOLN, ONCE, Stop date: 10/29/15 13:45:00 CDT Start Date: 10/29/15 Stop Date: 10/29/15 Status: Completed neostigmine (ANES) Route: IV, Drug form: INJ, ONCE, Stop date: 10/29/15 14:27:00 CDT Start Date: 10/29/15 Stop Date: 10/29/15 Status: Completed ondansetron (ANES) Route: IV, Drug form: INJ, ONCE, Stop date: 10/29/15 13:55:00 CDT Start Date: 10/29/15 Stop Date: 10/29/15 Status: Completed propofol (ANES) Route: IV, Drug form: INJ, ONCE, Stop date: 10/29/15 13:50:00 CDT Start Date: 10/29/15 Stop Date: 10/29/15 Status: Completed propranolol 10 mg=1 tab, PO, Daily Start Date: 10/29/15 Status: Ordered rocuronium (ANES) Route: IV, Drug form: INJ, ONCE, Stop date: 10/29/15 13:50:00 CDT Start Date: 10/29/15 Stop Date: 10/29/15 Status: Completed ropivacaine (ANES) Route: NERVE BLOCK, Drug Form: INJ, ONCE, Stop date: 10/29/15 20:07:00 CDT Start Date: 10/29/15 Stop Date: 10/29/15 Status: Completed ropivacaine 400 mL Dosing: Per Nerve Block Dosing Order, Route: NERVE BLOCK, Start date: 10/29/15 1 4:21:00 CDT 400 mL, Dosing Weight 85.46, kg, Duration: 30 day, Stop date: 14:20:00 CDT Start Date: 10/29/15 Stop Date: 10/29/15 Status: Discontinued Results No data available for this section Immunizations No data available for this section Procedures Procedure Date Related Diagnosis Body Site Repair of meniscus1 2012 Operation on colon2 2009 Hysterectomy 2002 section 1991 Tonsillectomy 1975 Fallopian tube operation 1Right knee 2Colon tumor removed Social History Social History Type Response Alcohol Never Smoking Status Current every day smoker; Type: Cigarettes; Ready to change: No; Lives with someone who smokes; Cigarette Smoking Last 365 Days Yes; Reg Smoking Cessation Counseling Yes Assessment and Plan Extracted from: Title: Clinical Document Author: Bhavya Villar MD Date: 10/29/15 OPERATIVE REPORT PATIENT NAME: Cassi Rosen DATE OF OPERATION/PROCEDURE: 10/29/2015 PREOPERATIVE DIAGNOSIS: 1. Right shoulder impingement syndrome. 2. Right shoulder SLAP tear. 3. Right shoulder partial rotator cuff tear. 4. Right biceps tendon rupture. 5. Left knee primary osteoarthitis. POSTOPERATIVE DIAGNOSIS: 1. Right shoulder impingement syndrome. 2. Right shoulder SLAP tear. 3. Right shoulder partial rotator cuff tear. 4. Right biceps tendon rupture. 5. Left knee primary osteoarthritis. NAME OF PROCEDURE: 1. Right shoulder arthroscopy with subacromial decompression. 2. Right shoulder arthroscopy with SLAP repair. 3. Right shoulder arthroscopy with partial rotator cuff debridement and biceps tendon debridement. 4. Steroid injection to the left knee. SURGEON: Dr. Bhavya Villar. ACCOUNTING COORDINATOR: Analy Jauregui. ANESTHESIA: General and Regional. FLUIDS: 800 mL of LR. ESTIMATED BLOOD LOSS: min. COMPLICATIONS: None. CONDITION: To the recovery room in stable condition. INDICATIONS FOR PROCEDURE: The patient is a 55-year-old female that had progressive worsening issues with right shoulder. MRI revealed a impingement syndrome,biceps tear, SLAP tear, and partial rotator cuff tear. She also has left knee osteoarthritis. The patient understands all the risk and benefits of the procedure and wished to proceed. DESCRIPTION OF PROCEDURE: The patient was brought to the operating room after acquiring a intrascalene block and transferred over to the hospital operating room table without any complications. The patient was given general anesthesia and successfully intubated. The patient had all her bony prominences well-padded and was placed into a beach chair position and given 2 grams Ancef and had the right shoulder prepped and draped in standard sterile fashion. A time out was performed and verified the procedure and limb. A posterior portal was made and entered into the glenohumeral joint was performed, the glenoid surface had a few areas of chondromalacia but overall intact. Superiorly the biceps tendon was completely torn and about a 3 cm stump remained. The superior labrum appeared to be torn as well. The biceps tendon stump was debrided with arthroscopic shaver as well. The SLAP area was addressed by a small incision anteriorly and then debridement of the frayed tissue was performed with an arthroscopic shaver. After debridement and visualization was noted, the superior labrum was repaired with 2.9 Pushlock after the suture anchor was placed through the superior labrum. The anterior labrum was debrided of its fraying as well in the posterior labrum. Of note, lateral to the biceps tendon tunnel, the rotator cuff tear was visualized and noted to be intact. The subscapularis was intact but had small longitudinal partial tears. The supraspinatus was noted to have fraying as well and possible small 10% tears and the two tendons had the arthroscopic shaver used to debride the tear down to a stable tissue. At that point our attention was drawn to the subacromial space. A 90 degree wand was used to remove the subacromial bursa and a arthroscopic delvin was placed through a lateral portal and made contact with the anterior osteophyte. The anterior osteophyte was removed with an arthroscopic delvin. The rotator cuff was evaluated from the superior aspect as well and noted to be completely intact. All wounds were copiously irrigated with normal saline and bacitracin. 2-0 Monocryl for the subcutaneous layer and 4-0 Monocryl and Steri-Strips for skin, 4 x 4s, ABD and dressing were applied. The patient was awoken from general anesthesia, successfully extubated and taken to recovery room in stable condition. All the needles, lap and sponge correct at the end of the case.
--- OUTSIDE RECORDS SUMMARY | 2018-09-09 23:54 | XMS REPORT | Summary of Care ---
Author Author [facility] Unknown Phone Unavailable Encounter ADELAIDE Dailey(FIN) [id number] Date(s): 11/02/15 - 12/01/15 [facility] Discharge Disposition: Home or Self [...]
--- OUTSIDE RECORDS SUMMARY | 2018-09-09 23:54 | XMS REPORT | Summary of Care ---
Author Author [facility] Outpatient [facility] [place] Address Unknown Phone Unavailable Encounter HQ Ashlie(FIN) [id number] Date(s): 06/25/16 - 06/25/16 [facility] [place] [id number] [place] [address], [address] [place] [address]- [phone] Discharge Disposition: Home or Self Care Attending [...]
--- OUTSIDE RECORDS SUMMARY | 2018-09-09 23:54 | XMS REPORT | Summary of Care ---
Author Author [facility] Organization [facility] Address Unknown Phone Unavailable Encounter ADELAIDE Dailey(DEEJAY) [id number] Date(s): 03/04/16 - 03/04/16 [facility] [address] [place] [address]- Discharge Diagnosis: Cervicalgia Discharge Diagnosis: Pain in lower back Discharge Disposition: Home or Self Care Attending Physician: Colin Lanier MD Vital Signs Most recent to 1 2 oldest [Reference Range]: Height 162.56 cm (03/04/16 4:22 PM) Temperature Oral 98.2 DegF 98.2 DegF [96.4-99.1 DegF] (03/04/16 6:46 PM) (03/04/16 4:22 PM) Blood Pressure 136/89 mmHg 137/73 mmHg [90-140/60-90 mmHg] (03/04/16 6:46 PM) (03/04/16 4:22 PM) Respiratory Rate 18 BRMIN 18 BRMIN [14-20 BRMIN] (03/04/16 6:46 PM) (03/04/16 4:22 PM) Peripheral Pulse 68 bpm 68 bpm Rate [60-100 bpm] (03/04/16 6:46 PM) (03/04/16 4:22 PM) Weight 86.364 kg (03/04/16 4:22 PM) Body Mass Index 32.68 m2 (03/04/16 4:22 PM) Problem List Condition Effective Dates Status Health Status Informant Current every day Active smoker(Confirmed) Depression(Confirmed Resolved ) Fracture(Confirmed)1 Resolved Heartburn(Confirmed) Resolved Hypertension(Confirm Active ed) Knee Active pain(Confirmed)2 Polyp of colon3 09/07/10 Active Shoulder Active pain(Confirmed)4 UI - Urinary Active incontinence(Confirm ed) 1left humerus 2left knee 3Data migrated from [employer] on 08/23/14. 4Right shoulder Allergies, Adverse Reactions, Alerts Substance Reaction Severity Status acetaminophen-HYDROcodone Active 1 codeine2 Active Vicodin throat swelling Severe Active 1Data migrated from [employer] on 07/22/14. Originally documented as VICODIN. Respiratory problems, e.g., wheezing 2Data migrated from [employer] on 05/27/15. Originally documented as CODEINE. Respiratory problems, e.g., wheezing Medications dexamethasone 10 mg, Route: IM, ONCE, Dosing Weight 86.364, kg, Priority: STAT, Start date: 17:39:00 MANAGER WOUND, Stop date: 03/04/16 17:39:00 MANAGER WOUND Start Date: 03/04/16 Stop Date: 03/04/16 Status: Completed Flexeril 10 mg, Route: PO, ONCE, Dosing Weight 86.364, kg, Priority: STAT, Start date: 17:38:00 MANAGER WOUND, Stop date: 03/04/16 17:38:00 MANAGER WOUND Start Date: 03/04/16 Stop Date: 03/04/16 Status: Completed Flexeril 10 mg oral tablet 10 mg, PO, TID, PRN Muscle Spasm, X 5 day, # 20 tab, 0 Refill(s) Start Date: 03/04/16 Stop Date: 03/09/16 Status: Ordered ketOROLAC 60 mg, Route: IM, Drug form: INJ, ONCE, Dosing Weight 86.364, kg, Priority: STAT , Start date: 03/04/16 17:38:00 MANAGER WOUND, Stop date: 03/04/16 17:38:00 MANAGER WOUND Start Date: 03/04/16 Stop Date: 03/04/16 Status: Completed oxyCODONE 5 mg/5 mL oral solution 5 mg, 5 mL, Route: PO, Drug form: SOLN, ONCE, Dosing Weight 86.364, kg, Start da te: 03/04/16 17:39:00 MANAGER WOUND, Stop date: 03/04/16 17:39:00 MANAGER WOUND Notes: (Same as:'Roxicodone)To be drawn up in 3 mL syr Start Date: 03/04/16 Stop Date: 03/04/16 Status: Completed Ultram 50 mg oral tablet 100 mg=2 tab, PO, Q6H, PRN pain, X 3 day, # 24 tab, 0 Refill(s) Start Date: 03/04/16 Stop Date: 03/07/16 Status: Ordered Results No data available for this section [...]
== END 2018-09-10 00:30 | disposition home or self-care (01) ==
LOC: FSED 23:50
DX: S60.572A Other superficial bite of hand of left hand, initial encounter (principal); W54.0XXA Bitten by dog, initial encounter; Y93.K9 Activity, other involving animal care; Y92.009 Unspecified place in unspecified non-institutional (private) residence as the place of occurrence of the external cause
CPT/HCPCS: 99283

== ENCOUNTER 2018-09-27 13:40 | Emergency (ER) | payer BC, MEDICARE ==
[~2018-09-27] VITALS: Ht 160 cm; Wt 80.5 kg
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
--- OUTSIDE RECORDS SUMMARY | 2018-09-27 13:44 | XMS REPORT | Continuity of Care Document ---
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 Active 03/16/2017 [facility] CYST RIGHT BREAST ONLY 1 AREA Active 12/26/2016 [facility] MASS Active 12/21/2016 [facility] DX: ROUTINE SCREENING/Z13.820=ENCOUNTER Active 10/06/2016 [facility] Discharge Diagnosis: Cervicalgia 03/04/2016 03/07/2016 [facility] Discharge Diagnosis: Pain in lower back 03/04/2016 03/07/2016 [facility] FALL Active 03/04/2016 [facility] UNK Active 10/08/2015 [facility] S09.90XA Active 02/24/2015 [facility] 354.1 - MEDIAN NERVE LE [facility] DX:GANGLION CYST RT HAND/ULNER N Active 09/23/2014 [facility] 726.90 ADHESION OF TENDON Active 06/03/2014 [facility] Polyp of colon1 Active 09/07/2010 Problem 05/30/2015 Data migrated from [employer] on 08/23/14. [facility] Polyp of colon3 Active 09/07/2010 Problem 01/06/2017 Data migrated from [employer] on 08/23/14. [facility] Pain in soft tissues of limb Active Problem 05/22/2014 [facility] Dislocation of midtarsal/Closed Active Problem 05/22/2014 [facility] Capsulitis Active Problem 05/22/2014 [facility] Current every day smoker Active Problem 01/06/2017 [facility] Depression Resolved Problem 01/06/2017 [facility] Fracture1 Resolved Problem 01/06/2017 left humerus [facility] Heartburn Resolved Problem 01/06/2017 [facility] Hypertension Active Problem 01/06/2017 [facility] Knee pain2 Active Problem 01/06/2017 left knee [facility] Shoulder pain4 Active Problem 01/06/2017 Right shoulder [facility] UI - Urinary incontinence Active Problem 01/06/2017 [facility] RT HAND PAIN Active [facility] HAND Active [facility] RIGHT RTC Active [facility] POST RTC SX:10/29/2015 Active [facility] STIFFNESS OF RT SHOULDER Active [facility] RT SHOULDER STIFFNESS Active [facility] Medications Medication Details Route Status Patient Instructions Ordering Provider Order Date Source Cyclobenzaprine hydrochloride 10 MG Oral Tablet [Flexeril] 10 mg, PO, TID, PRN Muscle Spasm, X 5 day, # 20 tab, 0 Refill(s) Active 03/05/2016 [facility] tramadol hydrochloride 50 MG Oral Tablet [Ultram] 100 mg=2 tab, PO, Q6H, PRN pain, X 3 day, # 24 tab, 0 Refill(s) Active 03/05/2016 [facility] Oxycodone Hydrochloride 1 MG/ML Oral Solution 5 mg, 5 mL, Route: PO, Drug form: SOLN, ONCE, Dosing Weight 86.364, kg, Start date: 03/04/16 17:39:00 PIANO MAKER, Stop date: 03/04/16 17:39:00 CSTNotes: (Same as:'Roxicodone) To be drawn up in 3 mL syr Inactive 03/04/2016 [facility] Dexamethasone 10 mg, Route: IM, ONCE, Dosing Weight 86.364, kg, Priority: STAT, Start date: 03/04/16 17:39:00 PIANO MAKER, Stop date: 03/04/16 17:39:00 PIANO MAKER Inactive 03/04/2016 [facility] Flexeril 10 mg, Route: PO, ONCE, Dosing Weight 86.364, kg, Priority: STAT, Start date: 03/04/16 17:38:00 PIANO MAKER, Stop date: 03/04/16 17:38:00 PIANO MAKER Inactive 03/04/2016 [facility] Ketorolac 60 mg, Route: IM, Drug form: INJ, ONCE, Dosing Weight 86.364, kg, Priority: STAT, Start date: 03/04/16 17:38:00 PIANO MAKER, Stop date: 03/04/16 17:38:00 PIANO MAKER Inactive 03/04/2016 [facility] ropivacaine (ANES) Route: NERVE BLOCK, Drug Form: INJ, ONCE, Stop date: 10/29/15 20:07:00 CDT Inactive 10/30/2015 [facility] neostigmine (ANES) Route: IV, Drug form: INJ, ONCE, Stop date: 10/29/15 14:27:00 CDT Inactive 10/29/2015 [facility] glycopyrrolate (ANES) Route: IV, Drug form: INJ, ONCE, Stop date: 10/29/15 14:27:00 CDT Inactive 10/29/2015 [facility] ePHEDrine (ANES) Route: IV, Drug form: INJ, ONCE, Stop date: 10/29/15 14:27:00 CDT Inactive 10/29/2015 [facility] ropivacaine Dosing: Per Nerve Block Dosing Order, Route: NERVE BLOCK, Start date: 10/29/15 14:21:00 CDT 400 mL, Dosing Weight 85.46, kg, Duration: 30 day, Stop date: 11/28/15 14:20:00 CDT Inactive 10/29/2015 [facility] Ondansetron 4 mg, Route: IVP, ONCE, Dosing Weight 85.46, kg, PRN Nausea & Vomiting, Start date: 10/29/15 14:15:00 CDT Inactive 10/29/2015 [facility] Fentanyl 50 microgram, Route: IVP, Q5Min, Dosing Weight 85.46, kg, PRN Pain Score 7-10, Start date: 10/29/15 14:15:00 CDT, Duration: 2 doses or times, Stop date: Limited # of times Inactive 10/29/2015 [facility] Flumazenil 0.2 mg, Route: IVP, PRN, Dosing Weight 85.46, kg, PRN Benzodiazepine Reversal, Initial dose, Start date: 10/29/15 14:15:00 CDT, Duration: 30 day, Stop date: 11/28/15 14:14:00 CDT Inactive 10/29/2015 [facility] Oxycodone 10 mg, Route: PO, Drug form: TAB, Q4H, Dosing Weight 85.46, kg, PRN Pain Score 7-10, Start date: 10/29/15 14:15:00 CDT, Duration: 30 day, Stop date: 11/28/15 14:14:00 CDT Inactive 10/29/2015 [facility] Meperidine 12.5 mg, Route: IVP, Q30Min, Dosing Weight 85.46, kg, PRN Other -See Comment, For shivering, Start date: 10/29/15 14:15:00 CDT, Duration: 2 doses or times, Stop date: Limited # of times Inactive 10/29/2015 [facility] Naloxone 0.4 mg, Route: IVP, Q2MIN, Dosing Weight 85.46, kg, PRN Narcotic Reversal, Start date: 10/29/15 14:15:00 CDT, Duration: 8 doses or times, Stop date: Limited # of times Inactive 10/29/2015 [facility] Acetaminophen 1,000 mg, Route: IVPB, Drug form: INJ, ONCE, Dosing Weight 85.46, kg, PRN Pain Score 1-3, Start date: 10/29/15 14:15:00 CDT, Duration: 1 doses or times, Stop date: Limited # of times Inactive 10/29/2015 [facility] Hydromorphone 0.5 mg, Route: IVP, Q5Min, Dosing Weight 85.46, kg, PRN Pain Score 7-10, Start date: 10/29/15 14:15:00 CDT, Duration: 4 doses or times, Stop date: Limited # of times Inactive 10/29/2015 [facility] ondansetron (ANES) Route: IV, Drug form: INJ, ONCE, Stop date: 10/29/15 13:55:00 CDT Inactive 10/29/2015 [facility] propofol (ANES) Route: IV, Drug form: INJ, ONCE, Stop date: 10/29/15 13:50:00 CDT Inactive 10/29/2015 [facility] rocuronium (ANES) Route: IV, Drug form: INJ, ONCE, Stop date: 10/29/15 13:50:00 CDT Inactive 10/29/2015 [facility] fentaNYL (ANES) Route: IV, Drug form: INJ, ONCE, Stop date: 10/29/15 13:50:00 CDT Inactive 10/29/2015 [facility] ceFAZolin (ANES) Route: IV, Drug form: INJ, ONCE, Stop date: 10/29/15 13:45:00 CDT Inactive 10/29/2015 [facility] midazolam (ANES) Route: IV, Drug form: SOLN, ONCE, Stop date: 10/29/15 13:45:00 CDT Inactive 10/29/2015 [facility] LR 1000 mL INJ (ANES) Route: IV, Total Volume: 1,000, Start date: 10/29/15 13:06:00 CDT, Stop date: 10/29/15 14:06:00 CDT Inactive 10/29/2015 [facility] Calcium Chloride 0.0014 MEQ/ML / Potassium Chloride 0.004 MEQ/ML / Sodium Chloride 0.103 MEQ/ML / Sodium Lactate 0.028 MEQ/ML Injectable Solution 1,000 mL, Rate: 25 ml/hr, Infuse over: 40 hr, Route: IV, Dosing Weight 85.46 kg, Total Volume: 1,000, Start date: 10/29/15 10:35:00 CDT, Duration: 30 day, Stop date: 11/28/15 10:34:00 CDT Inactive 10/29/2015 [facility] Propranolol 10 mg=1 tab, PO, Daily Active 10/29/2015 [facility] azilsartan medoxomil 40 MG / Chlorthalidone 25 MG Oral Tablet [Edarbyclor 40/25] 1 tab, PO, Daily Active 10/29/2015 [facility] Aspirin 81 mg, PO, Daily, 0 Refill(s) No Longer Active 10/27/2015 [facility] Allergies, Adverse Reactions, Alerts Substance Category Reaction Severity Reaction type Status Date Reported Comments Source acetaminophen-HYDROcodone<sup>1</sup> Assertion Drug allergy Active 09/07/2010 Data migrated from [employer] on 07/22/14. Originally documented as VICODIN. Respiratory problems, e.g., wheezing [facility] codeine<sup>2</sup> Assertion Drug allergy Active 09/07/2010 Data migrated from [employer] on 05/27/15. Originally documented as CODEINE. Respiratory problems, e.g., wheezing [facility] Hydrocodone TROUBLE SWALLOWING Unknown Allergy to Substance Active 09/10/2018 [facility] codeine Assertion Drug allergy Active [facility] Vicodin Assertion throat swelling Severe Propensity to adverse reactions to drug Active [facility] Immunizations No Data Provided for This Section Results No Data Provided for This Section Pathology Reports No Data Provided for This Section Diagnostic Reports Report Value Date Source Breast Mammo Diag UNI incl CAD MA UNILATERAL RIGHT DIGITAL DIAGNOSTIC MAMMOGRAM WITH CAD POST-PROCEDURE IMAGING FOR MARKER PLACEMENT: 01/03/2017 CLINICAL: Post biopsy clip confirmation mammogram after ultrasound biopsy. Current study was evaluated with a Computer Aided Detection (CAD) system. COMPARISON:Comparison is made to exams dated: 12/26/2016 mammogram, 12/14/2016 mammogram, 01/03/2017 ultrasound biopsy - [facility], 08/30/2011 mammogram - [facility], and 08/25/2010 ultrasound - [facility]. TECHNIQUE: Mammographic views were obtained using digital acquisition. [email or web address] Version 1.3 was utilized for computer aided [...] ACR/SBI guidelines. This exam was interpreted at [id number] for [facility]. José Miguel philip/lucinda:01/03/2017 10:59:29 Medical Sales Associate(s): Maddie Varner RT(R)(M), [facility] Mammogram BI-RADS: Post-procedure mammogram for marker placement 01/03/2017 [facility] Breast BX Uni w Clip Primary Side [...] 12/26/2016 ultrasound, 12/26/2016 mammogram, 12/14/2016 mammogram - [facility], 08/30/2011 mammogram - [facility], 08/25/2010 ultrasound, and 08/25/2010 mammogram - [facility]. An ultrasound guided biopsy using real-time ultrasound [...] administered during the procedure. After the local anesthetic was administered, about 2 ccs of cloudy [...] procedure complications. Pathology indicates benign results - 'Fibrocystic changes consistent with cyst formation, nodular fibrosis, florid duct epithelial hyperplasia, apocrine metaplasia, adenosis'. Negative cytology - 'Negative, no malignant cells identified. Mostly proteinaceous debris consistent with cyst contents.' Pathology results are concordant with imaging findings. Return to annual mammogram screening schedule is recommended.(12/14/2017) This exam was interpreted at [id number] for [facility]. José Miguel philip/:01/05/2017 10:04:57 Medical Sales Associate(s): Alek Horan, [facility] letter sent: Post Bx Results 01/03/2017 [facility] Breast Limited Uni US - BREAST LIMITED UNI US/R ULTRASOUND OF RIGHT BREAST: 12/26/2016 CLINICAL: Abnormal mammogram, mammographic nodule/density. Comparison is made to exams dated: 12/26/2016 mammogram, 12/14/2016 mammogram - [facility], 08/30/2011 mammogram - [facility], 08/25/2010 ultrasound, 08/25/2010 mammogram - [facility] and 07/07/2009 mammogram - [facility]. Color flow and real-time ultrasound of the [...] scheduled her procedure prior to leaving the [facility]. The physician's office was notified at 1350 hours on the day of the exam of the above findings and recommendations. An order for this procedure will need to be provided by the referring physician. As the patient is on anti-coagulation medication (aspirin), this should be discontinued prior to the biopsy with the referring physician's approval. José Miguel philip/:12/26/2016 13:55:27 Medical Sales Associate: Shiloh He, [facility] This exam was dictated and interpreted by [id number] for [facility]. letter sent: Biopsy Ultrasound BI-RADS: 4b Suspicious abnormality - intermediate suspicion of malignancy 12/26/2016 [facility] Breast Mammo Diag UNI incl CAD MA - BREAST MAMMO DIAG UNI INCL CAD MA/R UNILATERAL RIGHT DIGITAL DIAGNOSTIC MAMMOGRAM WITH CAD: 12/26/2016 CLINICAL: /Callback abnormal mammogram, mammographic nodule/density. Current study was evaluated with a Computer Aided Detection (CAD) system. Comparison is made to exams dated: 12/14/2016 mammogram - [facility], 08/30/2011 mammogram - [facility], 08/25/2010 mammogram - [facility], 07/07/2009 mammogram - [facility], 03/18/2008 mammogram - [facility] and 04/03/2006 mammogram - [facility]. The tissue of the right breast is [...] dedicated separate report. José Miguel philip/lucinda:12/26/2016 13:41:29 Medical Sales Associate: Kati Gunter, [facility] This exam was dictated and interpreted by [id number] for [facility]. Mammogram BI-RADS: 0 Indeterminate 12/26/2016 [facility] Bone Density Scan BONE DENSITY: HISTORY: Osteoporosis screening. TECHNIQUE: Dual energy x-ray absorptiometry (DEXA) was done over the lumbar spine and left hip on a [employer] Discovery SL scanner. FINDINGS: The total T-score [...] standard deviations (T-score) below peak bone mass. [id number] 12/14/2016 [facility] Breast Mammo Scrn AMANDA incl CAD MA - BREAST MAMMO SCRN AMANDA INCL CAD MA BILATERAL DIGITAL SCREENING MAMMOGRAM WITH CAD: 12/14/2016 CLINICAL: /Screen. Current study was evaluated with a Computer Aided Detection (CAD) system. Comparison is made to exams dated: 08/30/2011 mammogram - [facility], 08/25/2010 mammogram - [facility], 07/07/2009 mammogram - [facility], 03/18/2008 mammogram - [facility], 04/03/2006 mammogram - [facility] and 04/03/2006. The tissue of both breasts [...] (spot compression and lateral views). José Miguel philip/peneze:12/14/2016 14:48:12 Medical Sales Associate: Kati Gunter, [facility] This exam was dictated and interpreted by [id number] for [facility] [place]. letter sent: Additional Imaging Mammogram BI-RADS: 0 Indeterminate 12/14/2016 [facility] Knee wo contrast MRI EXAM: MRI of [...] 4. Moderate to large joint effusion. SL: [id number] 06/25/2016 [facility] Spine thoracic 3 views DX THORACIC SPINE [...] thoracic dextroscoliosis. Otherwise negative thoracic spine series. SL: SSMILEYLYNNETTE 03/04/2016 [facility] Spine lumbar 2 or 3 views DX [...] acute radiographic abnormalities in the lumbar spine. [id number] 03/04/2016 [facility] Spine cervical 2 or 3 view DX Cervical spine 3 views: There is no fracture or dislocation. There is narrowing of the C5-C6 and C6-C7 disc spaces with mild anterior and dorsal spondylosis. The other disc spaces are normal in width. The prevertebral soft tissues are within normal limits. IMPRESSION: No acute radiographic abnormality in the cervical spine. [id number] 03/04/2016 [facility] Brain wo contrast CT CLINICAL HISTORY: Headache [...] are clear. IMPRESSION: No specific acute finding. SL:14 02/27/2015 [facility] Consultation Notes No Data Provided for This Section Discharge Summaries No Data Provided for This Section History and Physicals No Data Provided for This Section Vital Signs Vital Sign Value Date Comments Source Systolic (mm Hg) 136 03/05/2016 [facility] Diastolic (mm Hg) 89 03/05/2016 [facility] Temperature Oral (F) 98.2 F 03/05/2016 [facility] Respitory Rate 18 03/05/2016 [facility] Heart Rate 68 03/05/2016 [facility] Weight 86.364 03/04/2016 [facility] BMI Calculated 32.68 03/04/2016 [facility] Height 162.56 cm 03/04/2016 [facility] Temperature Oral (F) 98.2 F 03/04/2016 [facility] Respitory Rate 18 03/04/2016 [facility] Heart Rate 68 03/04/2016 [facility] Systolic (mm Hg) 137 03/04/2016 [facility] Diastolic (mm Hg) 73 03/04/2016 [facility] Systolic (mm Hg) 134 10/29/2015 [facility] Diastolic (mm Hg) 91 10/29/2015 [facility] Respitory Rate 16 10/29/2015 [facility] Systolic (mm Hg) 124 10/29/2015 [facility] Diastolic (mm Hg) 97 10/29/2015 [facility] Respitory Rate 17 10/29/2015 [facility] Respitory Rate 16 10/29/2015 [facility] Systolic (mm Hg) 115 10/29/2015 [facility] Diastolic (mm Hg) 77 10/29/2015 [facility] Temperature Oral (F) 98.3 F 10/27/2015 [facility] Heart Rate 74 10/27/2015 [facility] BMI Calculated 33.37 10/27/2015 [facility] Weight 85.46 10/27/2015 [facility] Height 160.02 cm 10/27/2015 [facility] Encounters Location Location Details Encounter Type Encounter Number Reason For Visit Attending Provider ADM Date DC Date Status Source [facility] [id number] Talia Casper 10/17/2013 10/18/2013 [facility] MRI [id number] 05/21/2014 05/21/2014 [facility] Outpatient [id number] Tracey Ramirez 02/27/2015 02/28/2015 [facility] OP Therapy Patients [id number] Raul Gambino Jr 04/28/2015 05/28/2015 [facility] OBS Day Surgery [id number] Bhavya Salgado-Creighton 10/29/2015 10/29/2015 [facility] OP Therapy Patients [id number] Bhavya Salgado-Creighton 11/02/2015 12/02/2015 [facility] OP Therapy Patients [id number] Bhavya Salgado-Creighton 12/02/2015 01/01/2016 [facility] OP Therapy Patients [id number] Bhavya Salgado-Creighton 01/05/2016 02/04/2016 [facility] OP Therapy Patients [id number] Bhavya Salgado-Creighton 02/08/2016 03/09/2016 [facility] Emergency [id number] Nadosvaldo Christian 03/04/2016 03/05/2016 [facility] OP Therapy Patients [id number] Bhavya Salgado-Shaun 03/09/2016 04/08/2016 [facility]patient [facility] [id number] Bhavya Salgado-Creighton 06/25/2016 06/26/2016 [facility] Outpatient [id number] Amir Ghebranious 12/14/2016 12/15/2016 [facility] Outpatient [id number] Amir Ghebranious 12/26/2016 12/27/2016 [facility] Outpatient [id number] Amir Ghebranious 01/03/2017 01/04/2017 [facility] Outpatient [id number] APRIL JENNIFER 04/09/2018 [facility] Emergency Room [id number] RASHID REED MD 09/09/2018 09/10/2018 [facility] Procedures Procedure Code Date Perfomer Comments Source Repair of meniscus<sup>1</sup> [id number] 03/27/2012 Right knee [facility] Repair of meniscus<sup>1</sup> [id number] 03/27/2012 Right knee [facility] Repair of meniscus<sup>1</sup> [id number] 03/27/2012 Right knee [facility] Repair of meniscus<sup>1</sup> [id number] 03/27/2012 Right knee [facility] Operation on colon<sup>2</sup> [id number] 03/27/2009 Colon tumor removed [facility] Operation on colon<sup>2</sup> [id number] 03/27/2009 Colon tumor removed [facility] Operation on colon<sup>2</sup> [id number] 03/27/2009 Colon tumor removed [facility] Operation on colon<sup>2</sup> [id number] 03/27/2009 Colon tumor removed [facility] Hysterectomy [id number] 03/27/2002 [facility] Hysterectomy [id number] 03/27/2002 [facility] Hysterectomy [id number] 03/27/2002 [facility] Hysterectomy [id number] 03/27/2002 [facility] section [id number] 03/27/1991 [facility] section [id number] 03/27/1991 [facility] section [id number] 03/27/1991 [facility] section [id number] 03/27/1991 [facility] Tonsillectomy [id number] 03/27/1975 [facility] Tonsillectomy [id number] 03/27/1975 [facility] Tonsillectomy [id number] 03/27/1975 [facility] Tonsillectomy [id number] 03/27/1975 [facility] Fallopian tube operation [id number] [facility] Fallopian tube operation [id number] [facility] Fallopian tube operation [id number] [facility] Fallopian tube operation [id number] [facility] Assessment and Plan Assessment and Plan Date Source Extracted from:Title: Clinical Document Author: Bahvya Villar MD Date: 10/29/15 OPERATIVE REPORT PATIENT [...] the left knee. SURGEON: Dr. Bhavya Villar. CRYPTOGRAPHIC MACHINE OPERATOR: Analy Jauregui. ANESTHESIA: [facility]. FLUIDS: [...] correct at the end of the case. 10/29/2015 [facility] Plan of Care Plan of Care Date Source Discharge Date 09/10/18 12:30am Disposition HOME, SELF-CARE Condition at Discharge Stable Instructions/Education Provided Animal Bites - Adult Forms Provided Work/School Excuse Prescriptions See Medication Section Referrals ALLEN, MAGGIE MORALEZ MD Address: [address] [place], [place] [id number] Additional Instructions/Education 1. Please return to the ED IF You have severe pain. You have numbness or tingling in the area of your wound. Your wound starts bleeding and does not stop, even after you apply pressure. Contact your healthcare provider if: You have new drainage or a bad odor coming from the wound. You have a fever. You have increased swelling, redness, or pain. You have red streaks on your skin coming from your wound. You have questions or concerns about your condition or care. 09/10/2018 [facility] Social History Social History Date Source Smoking Status Start Date Stop Date Current every day smoker 09/10/2018 [facility] Social History TypeResponse Alcohol Never Smoking Status Current every day smoker; Type: Cigarettes; Ready to change: No; Lives with someone who smokes; Cigarette Smoking Last 365 Days Yes; Reg Smoking Cessation Counseling Yes 10/29/2015 [facility] Social History TypeResponse Alcohol Never Smoking Status Current every day smoker; Type: Cigarettes; Ready to change: No; Lives with someone who smokes; Cigarette Smoking Last 365 Days Yes; Reg Smoking Cessation Counseling Yes 10/29/2015 [facility] Social History TypeResponse Alcohol Never Smoking Status Current every day smoker; Type: Cigarettes; Ready to change: No; Lives with someone who smokes; Cigarette Smoking Last 365 Days Yes; Reg Smoking Cessation Counseling Yes 10/29/2015 [facility] Social History TypeResponse Alcohol Never Smoking Status Current every day smoker; Type: Cigarettes; Ready to change: No; Lives with someone who smokes; Cigarette Smoking Last 365 Days Yes; Reg Smoking Cessation Counseling Yes [facility] Social History ElementQualifiersDate Reported Do you smoke? . Answer: Yes, Are you a current smoker, How much do you smoke? 1 pk a day May 16, 2014 Marital Status: . May 16, 2014 Do you exercise? . Answer: No May 16, 2014 Do you drink alcohol? . Status: Yes May 16, 2014 Occupation: . Retired May 16, 2014 05/16/2014 [facility] Family History No Data Provided for This Section Advance Directives Order Name Results Value Date Source Advance Directives Advance Directives No advance directive information available. 09/10/2018 [facility] Functional Status No Data Provided for This Section
[2018-09-27] MEDS ORDERED: ACETAMINOPHEN 325 MG TAB PO ONE (14:15)
--- NOTE | 2018-09-27 14:58 | Diagnostic Imaging Report ---
Examination: CT BRAIN WO-HOPD CONTRAST History:Fall with head injury. Comparison studies:None Technique: Axial images were obtained from the skull base to the vertex. Coronal and sagittal images reconstructed from the axial data. Dose modulation, iterative reconstruction, and/or weight based adjustment of the mA/kV was utilized to reduce the radiation dose to as low as reasonably achievable. Intravenous contrast: None Findings: Scalp: No abnormalities. Bones: No fractures, blastic or lytic lesions. Brain sulci: Appropriate for age. Ventricles: Normal in size and configuration. No hydrocephalus. Extra-axial space: No abnormalities. Parenchyma: Chronic right frontal centrum semiovale lacunar infarct. No masses, hemorrhage, or acute or chronic cortical based vascular insults.. Sellar/suprasellar region: No abnormalities. Craniocervical junction: Patent foramen magnum. No Chiari one malformation. Incidental findings: Atherosclerotic calcification of the cavernous and supraclinoid internal carotid arteries. Impression: No acute intracranial abnormalities. Chronic right centrum semiovale lacunar infarct. Signed by: Dr. Nelli Huff M.D. on 09/27/2018 2:55 PM
--- NOTE | 2018-09-27 15:13 | Diagnostic Imaging Report ---
Examination: CT C-SPINE W/O CONTRAST- HOPD HISTORY:Neck injury after fall. COMPARISON:None. TECHNIQUE: Multidetector helical axial images were obtained without contrast from the foramen magnum to T1. Coronal and sagittal reformatted images were done. Bone and soft tissue windows were evaluated. Dose modulation, iterative reconstruction, and/or weight based adjustment of the mA/kV was utilized to reduce the radiation dose to as low as reasonably achievable. FINDINGS: Alignment:Normal alignment. Vertebrae: Normal height and density. No acute fracture, infection or neoplasm. Disc space heights: Normal height. Caliber of spinal canal: Developmentally normal. Posterior fossa and craniocervical junction: Foramen magnum patent. No Chiari 1 malformation. Soft tissues: No abnormality. Degenerative changes: Disc osteophytes from C5-C6 through C6-C7 without canal stenosis. The remaining levels demonstrate no disc bulge/ herniation or canal stenosis. Visualized lung apices: No abnormalities. IMPRESSION: No acute abnormalities. Signed by: Dr. Nelli Huff M.D. on 09/27/2018 3:09 PM
[2018-09-27 15:38] VITALS: BP 147/86
== END 2018-09-27 15:30 | disposition home or self-care (01) ==
LOC: FSED 13:40
DX: S01.81XA Laceration without foreign body of other part of head, initial encounter (principal); S16.1XXA Strain of muscle, fascia and tendon at neck level, initial encounter; M54.2 Cervicalgia; W05.1XXA Fall from non-moving nonmotorized scooter, initial encounter; Y92.008 Other place in unspecified non-institutional (private) residence as the place of occurrence of the external cause; I10 Essential (primary) hypertension
CPT/HCPCS: 70450; 72125; 99283